=== PATIENT | female | born 1980 | race Caucasian/White ===

== ENCOUNTER 2016-05-03 21:13 | Emergency (ER) | payer MEDICARE, OTHER ==
[~2016-05-03] VITALS: Ht 167.6 cm; Wt 68.0 kg
[~2016-05-03 21:13] MED LIST: AZIT500I PO; PRED20 PO
[2016-05-03] MEDS ORDERED: SODIUM CHLORIDE 0.9% FLUSH 5 ML FLUSH IVF PRN (21:15)
[2016-05-03 21:16] VITALS: BP 161/90; PULSE 112; RESP 20; TEMP 98.3; O2SAT 100
[2016-05-03 21:28] VITALS: RESP 16; O2SAT 100
--- NOTE | 2016-05-03 22:06 | PD ---
HPI . Overdose Chief Complaint: OD/ Ingestion Time Seen by Provider: 21:14 Travel History International Travel<30 days: No Contact w/Intl Traveler<30days: No Traveled to known affect area: No History of Present Illness HPI Patient presents to us via [facility] following an overdose which occurred just 30-45 minutes prior to presentation. She took the pills in front of her boyfriend who called EMS. She reports taking 3 Lortab and a blister pack of Benadryl. She reports suicidal ideation. [facility] Past Medical History ADHD: Yes Asthma: Yes Bipolar Disorder: Yes Anxiety: Yes Depression: Yes Diminished Hearing: No Respiratory: Yes (Asthma) Schizophrenia: Yes ?: Not LMP: current Tubal Ligation: Yes Past Surgical History Gynecologic Surgery: Yes (cyst removed from vaginal area) Other Surgery: Yes (breast augmentation) Social History Alcohol Use: No Tobacco Use: Yes (1 PPD) Substance Use: Yes (pain pills) Allergies-Medications (Allergen,Severity, Reaction): Coded Allergies: Penicillin (Verified Adverse Reaction, Severe, SWELLING AND RASH, 05/03/16) Reported Meds & Prescriptions Reported Meds & Active Scripts Active No Active Prescriptions or Reported Medications Review of Systems Except as stated in HPI: all other systems reviewed are Neg Psychiatric: Positive: Anxiety, Depression, Suicidal Ideations, Disorder of Thought, Mood Disorder Physical Exam Narrative GENERAL: Tearful woman. SKIN: Warm and dry. HEAD: Atraumatic. Normocephalic. EYES: Pupils equal and round. ENT: No nasal bleeding or discharge. Mucous membranes pink and moist. NECK: Trachea midline. CARDIOVASCULAR: Regular rate and rhythm. RESPIRATORY: No accessory muscle use. GASTROINTESTINAL: Abdomen soft, non-tender, nondistended. MUSCULOSKELETAL: No obvious deformities. No edema. NEUROLOGICAL: Awake and alert. No obvious cranial nerve deficits. Motor grossly within normal limits. Normal speech. PSYCHIATRIC: Sad and tearful; insight and judgment poor. Data Data Last Documented VS Vital Signs Date Time Temp Pulse Resp B/P Pulse Ox O2 Delivery O2 Flow Rate FiO2 05/03/16 21:28 16 100 Room Air 05/03/16 21:16 98.3 112 161/90 Orders Electrocardiogram (05/03/16 21:14) Complete Blood Count With Diff (05/03/16 21:14) Comprehensive Metabolic Panel (05/03/16 21:14) Urinalysis - C+S If Indicated (05/03/16 21:14) Iv Access Insert/Monitor (05/03/16 21:14) Cath For Specimen (05/03/16 21:14) Ecg Monitoring (05/03/16 21:14) Oximetry (05/03/16 21:14) Sodium Chloride 0.9% Flush (Ns Flush) (05/03/16 21:15) Drug Screen, Random Urine (05/03/16 21:14) Alcohol (Ethanol) (05/03/16 21:14) Salicylates (Aspirin) (05/03/16 21:14) Tylenol (Acetaminophen) (05/03/16 21:14) Consult Psychiatry (05/03/16 ) Labs Laboratory Tests Test 05/03/16 05/03/16 21:20 21:30 White Blood Count 10.1 TH/MM3 Red Blood Count 4.49 MIL/MM3 Hemoglobin 13.8 GM/DL Hematocrit 40.1 % Mean Corpuscular Volume 89.2 FL Mean Corpuscular Hemoglobin 30.7 PG Mean Corpuscular Hemoglobin 34.4 % Concent Red Cell Distribution Width 13.2 % Platelet Count 210 TH/MM3 Mean Platelet Volume 9.6 FL Neutrophils (%) (Auto) 50.4 % Lymphocytes (%) (Auto) 35.2 % Monocytes (%) (Auto) 7.2 % Eosinophils (%) (Auto) 6.3 % Basophils (%) (Auto) 0.9 % Neutrophils # (Auto) 5.1 TH/MM3 Lymphocytes # (Auto) 3.5 TH/MM3 Monocytes # (Auto) 0.7 TH/MM3 Eosinophils # (Auto) 0.6 TH/MM3 Basophils # (Auto) 0.1 TH/MM3 CBC Comment DIFF FINAL Differential Comment Sodium Level 140 MEQ/L Potassium Level 3.5 MEQ/L Chloride Level 105 MEQ/L Carbon Dioxide Level 28.8 MEQ/L Anion Gap 6 MEQ/L Blood Urea Nitrogen 11 MG/DL Creatinine 0.71 MG/DL Estimat Glomerular Filtration 93 ML/MIN Rate Random Glucose 77 MG/DL Calcium Level 9.1 MG/DL Total Bilirubin 0.2 MG/DL Aspartate Amino Transf 20 U/L (AST/SGOT) Alanine Aminotransferase 36 U/L (ALT/SGPT) Alkaline Phosphatase 60 U/L Total Protein 7.5 GM/DL Albumin 4.1 GM/DL Salicylates Level 3.6 MG/DL Acetaminophen Level LESS THAN 2.0 MCG/ML Ethyl Alcohol Level LESS THAN 3 MG/DL Urine Color YELLOW Urine Turbidity CLEAR Urine pH 5.5 Urine Specific [place] 1.019 Urine Protein NEG mg/dL Urine Glucose (UA) NEG mg/dL Urine Ketones NEG mg/dL Urine Occult Blood NEG Urine Nitrite NEG Urine Bilirubin NEG Urine Urobilinogen LESS THAN 2.0 MG/DL Urine Leukocyte Esterase TRACE Urine WBC 4 /hpf Urine Squamous Epithelial 1 /hpf Cells Urine Bacteria RARE /hpf Urine Mucus FEW /lpf Microscopic Urinalysis Comment CULT NOT INDICATED Urine Opiates Screen POS Urine Barbiturates Screen NEG Urine Amphetamines Screen NEG Urine Benzodiazepines Screen NEG Urine Cocaine Screen NEG Urine Cannabinoids Screen POS MDM Medical Decision Making Medical Screen Exam Complete: Yes Emergency Medical Condition: Yes Interpretation(s) EKG shows a normal sinus rhythm with no acute ischemic change. Differential Diagnosis Differential diagnosis includes but is not limited to depression with suicidal gesture, suicide attempt, suicidal ideation, attention seeking behavior. Narrative Course Patient presents following an OD. It sounds like it was and insignificant OD but she is feeling suicidal. We will clear her medically following the gesture and then consult psychiatry. CBC & BMP Diagram 05/03/16 21:20 Tox screen is positive for opiates and THC. Patient is medically clear for psychiatric evaluation. Diagnosis Primary Impression: Suicide gesture Qualified Code: X83.8XXA - Suicide gesture, initial encounter Scripts No Active Prescriptions or Reported Meds Condition: Cammy Ramos MD May 03, 2016 22:06
[2016-05-03 22:22] LABS: AMPHETAMINE, URINE NEG (NEG); BARBITURATES, URINE NEG (NEG); COCAINE, URINE NEG (NEG)
[2016-05-03 22:28] LABS: BACTERIA, URINE RARE /hpf; BLOOD, URINE NEG (NEG); COMMENT (UR) CULT NOT INDICATED; CULTURE IF INDICATED CULT NOT INDICATED; GLUCOSE,URINE NEG (NEG); KETONE, URINE NEG (NEG); MUCUS URINE FEW /lpf (OCC); NITRITE,URINE NEG (NEG); PH, URINE 5.5 (5.0-8.5); SQUAMOUS EPITHELIAL CELL URINE 1 /hpf (0-5); URINE COLOR YELLOW (YELLW/STRAW)
[2016-05-03 22:30] LABS: AUTOMATED NEUTROPHIL # 5.1 TH/MM3 (1.8-7.7); BASOPHIL # 0.1 TH/MM3 (0-0.2); BASOPHIL % 0.9 % (0.0-2.0); EOSINOPHIL # 0.6 TH/MM3 (0-0.4); EOSINOPHIL % 6.3 % (0.0-4.0); HEMATOCRIT 40.1 % (35.0-46.0); HEMO FLAGS DIFF FINAL; LYMPH % 35.2 % (9.0-44.0); LYMPHOCYTE # 3.5 TH/MM3 (1.0-4.8); MEAN CELL VOLUME 89.2 FL (80.0-100.0); MEAN CORPUSCULAR HEMOGLOBIN 30.7 PG (27.0-34.0); MEAN CORPUSCULAR HGB CONC 34.4 % (32.0-36.0); MONO % 7.2 % (0.0-8.0); NEUT % 50.4 % (16.0-70.0); PLATELET COUNT 210 TH/MM3 (150-450); RED BLOOD COUNT 4.49 MIL/MM3 (4.00-5.30); RED CELL DISTRIBUTION WIDTH 13.2 % (11.6-17.2); WHITE BLOOD COUNT 10.1 TH/MM3 (4.0-11.0)
[2016-05-03 22:33] LABS: ACETAMINOPHEN LESS THAN 2.0 MCG/ML (10.0-30.0); ALKALINE PHOSPHATASE 60 U/L (45-117); TOTAL BILIRUBIN ADULT 0.2 MG/DL (0.2-1.0)
[2016-05-03 22:35] LABS: ALT (GPT) 36 U/L (10-53); ANION GAP 6 MEQ/L (5-15); AST (GOT) 20 U/L (15-37); BICARBONATE 28.8 MEQ/L (21.0-32.0); BLOOD UREA NITROGEN 11 MG/DL (7-18); CHLORIDE 105 MEQ/L (98-107); GLOMERULAR FILTRATION RATE 93 ML/MIN (>89); POTASSIUM 3.5 MEQ/L (3.5-5.1); SODIUM (NA) 140 MEQ/L (136-145)
[2016-05-04 06:28] VITALS: BP 136/99; PULSE 76; RESP 18; TEMP 97.6; O2SAT 98
[2016-05-04 11:02] VITALS: BP 116/73; PULSE 80; RESP 18; O2SAT 99
[2016-05-04] MEDS ORDERED: OLANZapine ODT 5 MG TAB PO ONE (11:15)
[2016-05-04] MEDS ORDERED: IBUPROFEN 400 MG TAB PO ONE (12:30)
--- NOTE | 2016-05-04 16:23 | EKG ---
Date Performed: 05/03/2016 Time Performed: 21:40:08 PTAGE: 35 years EKG: Sinus rhythm Borderline left axis deviation. Right ventricular conduction disturbance. ABNORMAL ECG NO PREVIOUS TRACING DOCTOR: Jose A Johnson Interpretating Date/Time 05/04/2016 16:21:44
== END 2016-05-04 13:56 ==
LOC: NEPC 21:13 → NEPJ 05-04 13:56
DX: T40.2X2A Poisoning by other opioids, intentional self-harm, initial encounter (principal); F90.9 Attention-deficit hyperactivity disorder, unspecified type; J45.909 Unspecified asthma, uncomplicated; F31.9 Bipolar disorder, unspecified; F41.8 Other specified anxiety disorders; F17.210 Nicotine dependence, cigarettes, uncomplicated; R45.851 Suicidal ideations; X83.8XXA Intentional self-harm by other specified means, initial encounter; R94.31 Abnormal electrocardiogram [ECG] [EKG]
CPT/HCPCS: 80053; 80307; 80320; 80329; 81001; 85025; 93005; G0480

== ENCOUNTER → 2016-07-10 | Outpatient (CLI) | payer MEDICARE, OTHER ==
--- NOTE | 2016-07-16 09:54 | RSPPFT ---
DATE OF PROCEDURE: 07/10/16 COMMENTS: Spirometry with FVC of 3.6 predicted 3.8, FEV1 of 2.2 predicted 3.0, FEV1/FVC ratio 60% predicted 78%. Post-bronchodilator FEV1 increases to 3.1. IMPRESSION: On the basis of the above, patient has lung volumes and DLCO within the predicted range.
== END ==
LOC: HRSP 10:05
PROVIDERS: ATTEND Internal Medicine
DX: J45.909 Unspecified asthma, uncomplicated (principal)
CPT/HCPCS: 94060; 94726; 94729